=== PATIENT | male | born 1955 | race Caucasian/White ===

== ENCOUNTER 2021-06-13 07:09 | Day surgery (SDC) | payer MEDICARE, BC ==
[2021-06-12 13:16] LABS: BASOPHILS # (AUTO) 0.1 X10'3 (0-0.2); BASOPHILS % (AUTO) 0.7 % (0-1); EOSINOPHILS # (AUTO) 0.1 X10'3 (0-0.9); EOSINOPHILS % (AUTO) 0.6 % (0-6); HEMATOCRIT 27.8 % (42.0-52.0); HEMOGLOBIN 8.7 g/dl (14.0-17.9); LYMPHOCYTES # (AUTO) 1.2 X10'3 (1.1-4.8); MEAN CORPUSCULAR HEMOGLOBIN 23.2 PG (27.0-31.0); MEAN CORPUSCULAR HGB CONC 31.3 g/dL (33.0-36.5); MEAN CORPUSCULAR VOLUME 74.1 FL (78-98); MEAN PLATELET VOLUME 7.3 FL (7.4-10.4); MONOCYTES # (AUTO) 0.9 X10'3 (0-0.9); MONOCYTES % (AUTO) 8.9 % (2-12); NEUTROPHILS # (AUTO) 7.6 X10'3 (1.8-7.7); NEUTROPHILS % (AUTO) 77.8 % (42-75); PLATELET COUNT 284 X10'3 (140-440); RED BLOOD COUNT 3.75 X10'6 (4.70-6.10); RED CELL DISTRIBUTION WIDTH 17.8 % (11.5-14.5); WHITE BLOOD COUNT 9.8 X10'3 (4.5-11.0)
[2021-06-12 13:29] LABS: ALBUMIN 3.6 G/DL (3.4-5.0); ANION GAP 11 (8-16); BLOOD UREA NITROGEN 20 MG/DL (7-18); BUN/CREATININE RATIO 13.2 (5.4-32.0); CALCIUM 8.7 MG/DL (8.5-10.1); CHLORIDE 95 MMOL/L (99-107); CREATININE 1.52 MG/DL (0.60-1.10); GLUCOSE 98 MG/DL (70-104); PARTIAL THROMBOPLASTIN TIME 23 SECONDS (22-32); POTASSIUM 4.4 MMOL/L (3.5-5.1); SODIUM 131 MMOL/L (135-145); eGFR 46 ML/MIN
[~2021-06-13] VITALS: Ht 185.4 cm; Wt 98.9 kg
[2021-06-13] VITALS (11 sets, daily range): BP systolic 111–151; BP diastolic 62–79
[~2021-06-13 07:09] MED LIST: LOSA1TAB36 PO; METO50TA7 PO; OMEP-84 PO
[2021-06-13] MEDS ORDERED: acetylcysteine 200 MG/ml 4ml vial PO SCH (07:30)
[2021-06-13] MEDS ORDERED: normal saline 1,000 ML IV SCH (07:30)
[2021-06-13] MEDS ORDERED: LORazepam 0.5 MG tablet PO PRN (07:30)
[2021-06-13] MEDS ORDERED: diphenhydrAMINE 25mg capsule PO PRN (07:30)
[2021-06-13] MEDS ORDERED: LIDOcaine/PRILOcaine 5gm cream TP ONE (07:35)
[2021-06-13] MEDS ORDERED: sodium bicarbonate (8.4%) inj. 150 ML in dextrose 5%-water 1,000 ML IV ONE (07:35)
[2021-06-13] MEDS ORDERED: ASCO500C17 PO (07:45)
[2021-06-13] MEDS ORDERED: METO100T7 PO (07:45)
[2021-06-13] MEDS ORDERED: OMEP40CA21 PO (07:45)
[2021-06-13] MEDS ORDERED: PRED15SO23 PO (07:45)
[2021-06-13] MEDS ORDERED: RIVA20TA PO (07:45)
[2021-06-13] MEDS ORDERED: ACET-1008 PO (07:45)
[2021-06-13] MEDS ORDERED: verapamil 2.5 mg/ml inj IV ONE (08:51)
[2021-06-13] MEDS ORDERED: iohexol 350MG/ML 100ml bottle IV ONE (08:51)
[2021-06-13] MEDS ORDERED: iohexol 350 MG/ML 50ML vial IV ONE (08:51)
[2021-06-13] MEDS ORDERED: heparin 1,000unit/ml 10ml vial 10 ML ONE (08:51)
[2021-06-13] MEDS ORDERED: midazolam 1 mg/ML 2ml injection ONE (08:51)
[2021-06-13] MEDS ORDERED: LIDOcaine 1% (10mg/ml)w/preservative injection 20ml MDV ONE (08:51)
[2021-06-13] MEDS ORDERED: fentaNYL/PF 50MCG/1 ML 2ML syringe ONE (08:51)
[2021-06-13] MEDS ORDERED: nitroGLYCERIN-Tridil 50MG/D5W 250 ML IV ONE (08:52)
--- NOTE | 2021-06-13 11:00 | NUR ---
Pt eating breakfast tray, sitting up in bed.
--- NOTE | 2021-06-13 14:44 | NUR ---
Pt sitting up in bed, eating lunch tray, at bedside
--- NOTE | 2021-06-13 15:50 | NUR ---
RT IV DC'd in laboratory [facility]. RT ac dressing changed. Drsg CD&I, no s/s of bleeding or infection. Pt denies pain.
[2021-06-18 06:40] LABS: ISTAT HGB ART 8.2 g/dl (14.0-18.0); ISTAT Hct ART 24 %PCV (42-52); ISTAT O2 SATURATION ARTERIAL 98 % (95-98); ISTAT SOURCE BLNK
[2021-06-18 12:43] LABS: ISTAT Hct MIX 24 %PCV (42-52)
[2021-06-18 12:44] LABS: ISTAT O2 SATURATION MIX VENOUS 65 % (60-80); ISTAT SOURCE VENOUS
== END 2021-06-13 10:05 | disposition home or self-care (01) ==
LOC: SSTAY O 07:09
PROVIDERS: ATTEND Internal Medicine Cardiovascular Disease
DX: R53.83 Other fatigue (principal); R06.02 Shortness of breath; R07.89 Other chest pain; I25.10 Atherosclerotic heart disease of native coronary artery without angina pectoris; J44.9 Chronic obstructive pulmonary disease, unspecified; G47.30 Sleep apnea, unspecified; K21.9 Gastro-esophageal reflux disease without esophagitis; I12.9 Hypertensive chronic kidney disease with stage 1 through stage 4 chronic kidney disease, or unspecified chronic kidney disease; N18.9 Chronic kidney disease, unspecified; M19.90 Unspecified osteoarthritis, unspecified site; E78.5 Hyperlipidemia, unspecified; Z85.828 Personal history of other malignant neoplasm of skin; Z79.01 Long term (current) use of anticoagulants; Z86.718 Personal history of other venous thrombosis and embolism; Z72.89 Other problems related to lifestyle; Z79.899 Other long term (current) drug therapy; Z98.890 Other specified postprocedural states; Z96.659 Presence of unspecified artificial knee joint; Z87.891 Personal history of nicotine dependence; Z82.49 Family history of ischemic heart disease and other diseases of the circulatory system
CPT/HCPCS: 36415; 80048; 82803; 85014; 85025; 85610; 85730; 93005; 93460; 99152; 99153; C1751; C1769; C1894; J1644; J2250; J3010; J3490; J7030; J7070; Q0163; Q9967; A4620; A5120